=== PATIENT | female | born 1965 | race Caucasian/White ===

== ENCOUNTER 2021-01-12 12:07 | Outpatient (CLI) | payer OTHER | END 2021-01-12 23:59 | disposition home or self-care (01) | LOC: CFH 12:07 | PROVIDERS: ATTEND Obstetrics & Gynecology | DX: N60.82 Other benign mammary dysplasias of left breast (principal); R92.8 Other abnormal and inconclusive findings on diagnostic imaging of breast | CPT/HCPCS: 76642; 77062; 77063; 77066; G0279 ==